=== PATIENT | female | born 1980 | race Caucasian/White ===

== ENCOUNTER 2016-11-20 05:43 | Emergency (ER) | payer OTHER ==
--- NOTE | ~2016-11-20 | CR126 ---
[facility]. [facility] A Service of [facility] & [facility] RADIOLOGY TEXT RESULTS PATIENT: ANNE KAPLAN LOCATION: SED : 76 UNIT #: [id number] AGE: [address]: Fadi Enciso MD SEX: F ORDER DR: [id number] [address] [address] [id number] E MR#: [id number] Acc #: [id number] NAME: ANNE KAPLAN : 1980 SEX: F STUDY DATE/TIME: 11/20/2016 6:01 UNIT: SED ROOM: STUDY DESCRIPTION: CR Foot Complete Min 3 View Lt Attending Physician: Fadi Enciso M.D. Ordering Physician: Fadi Enciso M.D. Primary Care Physician: Anuja Sy M.D. MEDICAL IMAGING REPORT This report is preliminary unless electronic signature is present. EXAM Left foot. INDICATION Left foot pain since last night after stepping on foot wrong. FINDINGS The tarsal, metatarsal, and phalangeal elements are all anatomically normal in position and alignment. There are no articular defects. No fractures or radiopaque foreign bodies in the soft tissues are apparent. IMPRESSION Normal foot. Dictated by... Lester Bañuelos M.D. THIS IS AN ELECTRONICALLY VERIFIED REPORT Lester Bañuelos M.D. at 11/20/2016 10:25 AM NITA/lyn TD: 11/20/2016 09:18 JOB #: [id number] MEDICAL IMAGING REPORT Page 1 of 1
[~2016-11-20 05:43] MED LIST: ALBUTEROL17 GM INH; ATIVAN PO; AURALGAN EAR DR14 ML OT; BACTRIM DS TABL1 TA1 PO; BACTRIM DS TABL1 TAB PO; BUSPAR PO; CIPRO HC10 ML OT; CIPRO PO; DOXYCYCLINE HY100 M1 PO; ERYC250 MG PO; FAMOTIDINE PO; FLEXERIL10 M1 PO; FLEXERIL10 MG; FLEXERIL10 MG PO; FLOVENT7.9 GM IN; HYDROCODON-ACE1 EAC1 PO; IBUPROFEN800 MG PO; KEFLEX PO; LASIX20 MG PO; LORTAB 5/500 TA1 TA1 PO; NAPROXEN; NEXIUM PO; PHENERGAN DM1 ML PO; PHENERGAN/CODEIN5 ML PO; PREDNISONE50 MG PO; PRENATAL1 TA1 PO; PREVACID PO; PRILOSEC20 MG PO; PYRIDIUM PO; TYLOX 5/500 CAP1 CAP PO; ULTRAM PO; VICODIN 5/1 TAB 5/50 PO; VICODIN 5/500 T1 TAB PO; VOLTAREN75 MG PO; XANAX1 MG PO; ZOLOFT PO; [UNRECOGNIZED DRUG - OTHER] PO
[2016-11-20] MEDS ORDERED: ZESTRIL10 M2 PO (05:52)
== END 2016-11-20 06:35 | disposition home or self-care (01) ==
LOC: SED 05:43
DX: S93.602A Unspecified sprain of left foot, initial encounter (principal); K21.9 Gastro-esophageal reflux disease without esophagitis; I10 Essential (primary) hypertension; J45.909 Unspecified asthma, uncomplicated; F17.200 Nicotine dependence, unspecified, uncomplicated; Z88.0 Allergy status to penicillin; Z88.5 Allergy status to narcotic agent; W22.8XXA Striking against or struck by other objects, initial encounter; Y92.009 Unspecified place in unspecified non-institutional (private) residence as the place of occurrence of the external cause
CPT/HCPCS: 73630; 99283